=== PATIENT | female | born 1960 | race Caucasian/White ===

== ENCOUNTER 2018-08-28 13:18 | Emergency (ER) | payer BC, OTHER ==
[2018-08-28 13:44] VITALS: BP 144/65
--- NOTE | 2018-08-28 13:54 | UC ---
Respiratory Complaint HPI - HPI Summary HPI Summary: Was seen by PMD last Wednesday for what she thought was sinus infection. Started on sulfamethoxazole BID. Started to feel worse on med, GI upset, so stopped taking. Has been having sinus congestion, chest congestion with some SOB, clear productive cough x4 days. - History of Current Complaint Chief Complaint: UCRespiratory Stated Complaint: CONGESTION COUGH Time Seen by Provider: 08/28/18 13:36 Hx Obtained From: Patient ?: No Onset/Duration: Gradual Onset, Lasting Days Timing: Constant Severity Initially: Moderate Severity Currently: Moderate Pain Intensity: 5 Aggravating Factors: Exertion, Deep Breaths Alleviating Factors: Nothing Associated Signs And Symptoms: Positive: Dyspnea, Wheezing, URI - Allergies/Home Medications Allergies/Adverse Reactions: Allergies Allergy/AdvReac Type Severity Reaction Status Date / Time Penicillins Allergy Hives Verified 08/28/18 13:37 topiramate [From Topamax] Allergy GI Upset Verified 08/28/18 13:37 Home Medications: Home Medications Cholecalciferol TAB* [Vitamin D TAB*] 1,000 unit PO DAILY 08/28/18 [History Confirmed 08/28/18] Glucosamine Sulfate Dipot Chlr [Gnp Glucosamine Maximum S] 1,000 mg PO DAILY [History Confirmed 08/28/18] Hydrochlorothiazide TAB* [Hydrodiuril TAB*] 50 mg PO DAILY 08/28/18 [History Confirmed 08/28/18] Multivitamins/Minerals TAB* [Theragran/minerals TAB*] 1 tab PO DAILY 08/28/18 [ History Confirmed 08/28/18] [place]-3S/Dha/Epa/Fish Oil [Fish Oil 1,200 mg Softgel] 1 each PO DAILY 08/28/18 [ History Confirmed 08/28/18] Phenylephrine HCl [Sinus Pressure-Ki Relief PE] 10 mg PO ONCE 08/28/18 [ History Confirmed 08/28/18] Tiotropium CAP.INH* [Spiriva CAP.INH*] 1 cap.inh INH DAILY 08/28/18 [History Confirmed 08/28/18] Triamcinolone NASAL SPRAY* [Nasacort AQ Nasal [place]*] 1 puff NASAL DAILY [History Confirmed 08/28/18] lamoTRIgine TAB(*) [LaMICtal TAB(*)] 100 mg PO BEDTIME 08/28/18 [History Confirmed 08/28/18] raNITIdine HCl [Ranitidine HCl] 150 mg PO DAILY 08/28/18 [History Confirmed ] traZODone TAB* [Desyrel TAB*] 100 mg PO BEDTIME 08/28/18 [History Confirmed ] PMH/Surg Hx/FS Hx/Imm Hx Previously Healthy: Yes - Surgical History Surgical History: Yes Surgery Procedure, Year, and Place: hysterectomy. sinus surgery - Family History Known Family History: Positive: Hypertension - Social History Alcohol Use: None Substance Use Type: None Smoking Status (MU): Heavy Every Day Tobacco Smoker Type: Cigarettes Amount Used/How Often: 1 PPD Review of Systems All Other Systems Reviewed And Are Negative: Yes Constitutional: Positive: Fever, Chills, Fatigue Skin: Positive: Negative Eyes: Positive: Negative ENT: Positive: Sore Throat, Nasal Discharge, Sinus Congestion Respiratory: Positive: Shortness Of Breath, Cough Cardiovascular: Positive: Negative Gastrointestinal: Positive: Negative Genitourinary: Positive: Negative Motor: Positive: Negative Neurovascular: Positive: Negative Musculoskeletal: Positive: Arthralgia, Myalgia Neurological: Positive: Headache Psychological: Positive: Negative Is Patient Immunocompromised?: No Physical Exam Triage Information Reviewed: Yes Appearance: Well-Nourished, Ill-Appearing, Pain Distress Vital Signs: Initial Vital Signs Temp 99.0 F 08/28/18 13:38 Pulse 72 08/28/18 13:38 Resp 18 08/28/18 13:38 BP 144/65 08/28/18 13:38 Pulse Ox 95 08/28/18 13:38 Vital Signs Reviewed: Yes Eye Exam: Normal ENT: Positive: Pharyngeal erythema, Nasal congestion, TM bulging Dental Exam: Normal Neck exam: Normal Respiratory Exam: Normal Respiratory: Positive: Respiratory distress - mild, Decreased breath sounds - decreased air movement throughout, hard to take a deep breath, Accessory muscle use Cardiovascular: Positive: RRR, No Murmur, Pulses Normal Abdominal Exam: Normal Musculoskeletal Exam: Normal Neurological Exam: Normal Psychological Exam: Normal Skin Exam: Normal UC Diagnostic Evaluation - Laboratory O2 Sat by Pulse Oximetry: 95 Respiratory Course/Dx - Course Course Of Treatment: hx obtained, exam performed, meds reviewed, rapid flu obtained and positive for flu A, cheast xray obtained, nebulizer treatment performed - Differential Dx/Diagnosis Differential Diagnosis/HQI/PQRI: Asthma, Bronchitis, Exacerbation Of COPD, Influenza, Lower Resp Infection, Sinusitis Provider Diagnosis: Influenza A, Asthma, Tobacco abuse Discharge - Sign-Out/Discharge Documenting (check all that apply): Patient Departure All imaging exams completed and their final reports reviewed: Yes - Discharge Plan Condition: Stable Disposition: HOME Patient Education Materials: How to Stop Smoking (ED), Influenza (ED) Referrals: Frank Seals NP [Primary Care Provider] - Additional Instructions: 1. you have the flu 2. continue with current medications. 3. Get plenty of rest 4. Increase fluids 5. This is a great time to stop smoking! 6. If you develop respiratory distress go to the ER. - Billing Disposition and Condition Condition: STABLE Disposition: Home
[2018-08-28 14:04] LABS: Influenza A Molecular POSITIVE (Negative)
[2018-08-28] MEDS ORDERED: Albuterol/Ipratropium NEB.SOL* Albuterol 2.5 MG/Ipratropium 0.5 MG 3 ML INH ONE (14:11)
== END 2018-08-28 14:53 | disposition home or self-care (01) ==
LOC: UCCORT 13:18
DX: J09.X2 Influenza due to identified novel influenza A virus with other respiratory manifestations (principal); J45.909 Unspecified asthma, uncomplicated; Z88.8 Allergy status to other drugs, medicaments and biological substances; F17.210 Nicotine dependence, cigarettes, uncomplicated; Z88.0 Allergy status to penicillin
CPT/HCPCS: 71046; 99202; A9270-GY; G0463